=== PATIENT | female | born 2000 | race Two or more races ===

== ENCOUNTER 2022-08-30 17:31 | Emergency (ER) | payer BC ==
[~2022-08-30] VITALS: Ht 167.6 cm; Wt 77.1 kg
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
[2022-08-30] MEDS ORDERED: KETOROLAC TROMETHAMINE INJ 60 MG/2 ML VIAL IM ONE (18:30)
[2022-08-30] MEDS ORDERED: KETOROLAC TROMETHAMINE INJ 30 MG/ML VIAL ONE (18:40)
[2022-08-30] MEDS ORDERED: NAPR-1009 PO (18:56)
[2022-08-30] MEDS ORDERED: TDAP [DIPH/PERTUSSIS/TET] 0.5 ML VIAL IM ONE ×2 (20:30→21:00)
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
[2022-08-30 21:28] VITALS: BP 135/77
== END 2022-08-30 21:28 | disposition home or self-care (01) ==
LOC: ER 17:42
DX: S39.012A Strain of muscle, fascia and tendon of lower back, initial encounter (principal); S16.1XXA Strain of muscle, fascia and tendon at neck level, initial encounter; S80.01XA Contusion of right knee, initial encounter; S90.01XA Contusion of right ankle, initial encounter; Z79.1 Long term (current) use of non-steroidal anti-inflammatories (NSAID); V09.9XXA Pedestrian injured in unspecified transport accident, initial encounter; Y93.89 Activity, other specified; Y92.89 Other specified places as the place of occurrence of the external cause; Y99.8 Other external cause status
CPT/HCPCS: 99284; 29515; 96372; 90471; 90715; 73610; 73552; 73564; 73590; 84703; J1885